=== PATIENT | female | born 1945 | race Caucasian/White ===

== ENCOUNTER → 2017-02-25 | Outpatient (CLI) | payer MEDICARE ==
--- NOTE | 2017-02-25 15:22 | CT ---
EXAMINATION TYPE: CT shoulder LT wo con DATE OF EXAM: 02/25/2017 12:19 PM COMPARISON: NONE HISTORY: Lt proximal humerus fracture, fall CT DLP: 207.1 mGycm Automated exposure control for dose reduction was used. FINDINGS: There is an oblique or spiral comminuted fracture through the proximal left humerus. Three-D reconstr ucted images performed separately on the ventricular computer are reviewed. Clavicle appears intact. Scapula appears intact. IMPRESSION: ESSENTIALLY NONDISPLACED OBLIQUE COMMINUTED FRACTURE PROXIMAL HUMERUS. THE GREATER TUBEROSITY IS AVUL SED THERE IS AN OBLIQUE FRACTURE FROM THE GREATER TUBEROSITY TO THE MEDIAL METADIAPHYSEAL HUMERUS.
== END | disposition home or self-care (01) ==
LOC: RADCTMAIN 11:43
PROVIDERS: ATTEND Orthopaedic Surgery
DX: S42.255A Nondisplaced fracture of greater tuberosity of left humerus, initial encounter for closed fracture (principal)

== ENCOUNTER 2021-10-30 16:25 | Emergency (ER) | payer MEDICARE ==
[2021-10-30 17:01] VITALS: TEMP 98.6
--- NOTE | 2021-10-30 17:09 | ED ---
General Adult HPI - General Chief complaint: Weakness Stated complaint: Fall 2 wks ago, Headache, no thinners Time Seen by Provider: 10/30/21 17:08 Source: patient, family Mode of arrival: wheelchair Limitations: no limitations - History of Present Illness Initial comments: Patient presents to the ED with her daughter for evaluation. Per daughter, the patient has rapidly progressing macular degeneration, and her eyesight has become significantly worse over the past several weeks (daughter states that the patient just saw her health researcher yesterday). Per daughter, given the patient's worsening eyesight, she has been bumping into things and falling more frequently. Per daughter, the patient fell off the couch last week, striking her head on the ground. Daughter states that the patient fell again a couple days later and hit her head at that time as well. Daughter states that she has not noticed any swelling or ecchymosis to the patient's head, and she denies LOC during any of these falls/injuries. Patient states that she has developed a headache today, and she feels generally weak today. Patient states that she has not had a headache until today. Patient denies fever or chills, LOC, neck pain or stiffness, focal numbness/weakness/neuro deficit, speech difficulty, eye pain, back pain, extremity pain, chest pain, dyspnea, cough or cold symptoms, palpitations, dizziness, syncope, nausea/vomiting/diarrhea, bloody or melanotic stool, dysuria or urinary symptoms, or any other symptoms or complaints. Daughter states that the patient is fully vaccinated against Covid, and she states that she has received 2 shots plus the booster shot. - Related Data Allergies Allergy/AdvReac Type Severity Reaction Status Date / Time No Known Allergies Allergy Verified 10/30/21 17:01 Review of Systems ROS Statement: Those systems with pertinent positive or pertinent negative responses have been documented in the HPI. ROS Other: All systems not noted in ROS Statement are negative. Past Medical History Past Medical History: Osteoarthritis (OA) Additional Past Medical History / Comment(s): macular degeneration History of Any Multi-Drug Resistant Organisms: None Reported Past Surgical History: Orthopedic Surgery, Tonsillectomy Past Psychological History: No Psychological Hx Reported Smoking Status: Never smoker Past Alcohol Use History: None Reported Past Drug Use History: None Reported General Exam Limitations: no limitations General appearance: alert, in no apparent distress Head exam: Present: atraumatic, normocephalic Eye exam: Present: normal appearance, PERRL, EOMI ENT exam: Present: mucous membranes moist, TM's normal bilaterally Neck exam: Present: other (Trachea is in midline). Absent: tenderness Respiratory exam: Present: normal lung sounds bilaterally. Absent: respiratory distress, wheezes, rales, rhonchi, stridor Cardiovascular Exam: Present: regular rate, normal rhythm, normal heart sounds, other (Normal radial pulses bilaterally) GI/Abdominal exam: Present: soft. Absent: distended, tenderness, guarding Extremities exam: Present: full ROM. Absent: tenderness, pedal edema, calf tenderness Back exam: Present: normal inspection. Absent: tenderness Neurological exam: Present: alert, oriented X3, CN II-XII intact. Absent: motor sensory deficit Psychiatric exam: Present: normal affect, normal mood Skin exam: Present: warm, dry, intact, normal color Course Vital Signs 10/30/21 10/30/21 16:53 19:18 Temperature 98.6 F Pulse Rate 109 H 102 H Respiratory 19 18 Rate Blood Pressure 173/78 162/81 O2 Sat by Pulse 99 99 Oximetry - Reevaluation(s) Reevaluation #1: 10/30/21 18:50 Case, H&P, test results thus far and head CT report were discussed with Dr. Chang (ED physician at [facility] in [place]). She accepts ambulance transfer to their ED for neurosurgical evaluation. She has no further recommendations at this time. 10/30/21 19:05 Patient and daughter are aware of the patient's test results thus far/CT findings and my discussion with Dr. Chang as above. They both agree with trans sky to the [facility] ED at this time. Patient denies development of any new symptoms while in the ED, and she remains alert and breathing comfortably with a nonfocal neurological exam. EKG Findings - EKG Comments: EKG Findings:: Normal sinus rhythm, ventricular rate of 88 bpm, no ectopy, normal TX and QRS intervals, normal QT interval, normal axis, no ST or T-wave abnormality Medical Decision Making - Medical Decision Making Given the patient's reported symptoms and brain CT findings, I am concerned for the possibility of a brain mass/tumor. MR imaging is not available in our hospital at this time. Patient has been accepted for transfer to the [facility] ED for MR imaging and neurosurgical consultation. Patient and daughter agree with transfer to the [facility] ED at this time. Patient was given a dose of IV Decadron in the ED. - Lab Data Result diagrams: 10/30/21 18:09 10/30/21 18:09 Lab Results 10/30/21 10/30/21 10/30/21 Range/Units 18:09 18:09 18:09 WBC 7.4 (3.8-10.6) k/uL RBC 4.09 (3.80-5.40) m/uL Hgb 12.3 (11.4-16.0) gm/dL Hct 37.4 (34.0-46.0) % MCV 91.4 (80.0-100.0) fL MCH 30.2 (25.0-35.0) pg MCHC 33.0 (31.0-37.0) g/dL RDW 12.2 (11.5-15.5) % Plt Count 190 (150-450) k/uL MPV 10.1 Neutrophils % 69 % Lymphocytes % 18 % Monocytes % 7 % Eosinophils % 3 % Basophils % 1 % Neutrophils # 5.1 (1.3-7.7) k/uL Lymphocytes # 1.3 (1.0-4.8) k/uL Monocytes # 0.5 (0-1.0) k/uL Eosinophils # 0.2 (0-0.7) k/uL Basophils # 0.1 (0-0.2) k/uL PT 10.6 (9.0-12.0) sec INR 1.0 (<1.2) APTT 23.1 (22.0-30.0) sec Sodium (137-145) mmol/L Potassium (3.5-5.1) mmol/L Chloride (98-107) mmol/L Carbon Dioxide (22-30) mmol/L Anion Gap mmol/L BUN (7-17) mg/dL Creatinine (0.52-1.04) mg/dL Est GFR (CKD-EPI)AfAm (>60 ml/min/1.73 sqM) Est GFR (CKD-EPI)NonAf (>60 ml/min/1.73 sqM) Glucose (74-99) mg/dL Plasma Lactic Acid Kirill (0.7-2.0) mmol/L Calcium (8.4-10.2) mg/dL Magnesium (1.6-2.3) mg/dL Total Bilirubin (0.2-1.3) mg/dL AST (14-36) U/L ALT (4-34) U/L Alkaline Phosphatase (38-126) U/L Troponin I (0.000-0.034) ng/mL Total Protein (6.3-8.2) g/dL Albumin (3.5-5.0) g/dL TSH (0.465-4.680) mIU/L Urine Color Light Yellow Urine Appearance Cloudy H (Clear) Urine pH 5.0 (5.0-8.0) Ur Specific [place] 1.012 (1.001-1.035) Urine Protein Negative (Negative) Urine Glucose (UA) Negative (Negative) Urine Ketones Negative (Negative) Urine Blood Small H (Negative) Urine Nitrite Negative (Negative) Urine Bilirubin Negative (Negative) Urine Urobilinogen <2.0 (<2.0) mg/dL Ur Leukocyte Esterase Negative (Negative) Urine RBC 4 (0-5) /hpf Urine WBC 3 (0-5) /hpf Ur Squamous Epith Cells <1 (0-4) /hpf Hyaline Casts 1 (0-2) /lpf Urine Mucus Rare H (None) /hpf Coronavirus (PCR) (Not Detectd) 10/30/21 10/30/21 10/30/21 Range/Units 18:09 18:09 18:09 WBC (3.8-10.6) k/uL RBC (3.80-5.40) m/uL Hgb (11.4-16.0) gm/dL Hct (34.0-46.0) % MCV (80.0-100.0) fL MCH (25.0-35.0) pg MCHC (31.0-37.0) g/dL RDW (11.5-15.5) % Plt Count (150-450) k/uL MPV Neutrophils % % Lymphocytes % % Monocytes % % Eosinophils % % Basophils % % Neutrophils # (1.3-7.7) k/uL Lymphocytes # (1.0-4.8) k/uL Monocytes # (0-1.0) k/uL Eosinophils # (0-0.7) k/uL Basophils # (0-0.2) k/uL PT (9.0-12.0) sec INR (<1.2) APTT (22.0-30.0) sec Sodium 139 (137-145) mmol/L Potassium 4.2 (3.5-5.1) mmol/L Chloride 103 (98-107) mmol/L Carbon Dioxide 28 (22-30) mmol/L Anion Gap 8 mmol/L BUN 22 H (7-17) mg/dL Creatinine 0.82 (0.52-1.04) mg/dL Est GFR (CKD-EPI)AfAm 79 (>60 ml/min/1.73 sqM) Est GFR (CKD-EPI)NonAf 69 (>60 ml/min/1.73 sqM) Glucose 100 H (74-99) mg/dL Plasma Lactic Acid Kirill 1.1 (0.7-2.0) mmol/L Calcium 10.3 H (8.4-10.2) mg/dL Magnesium 2.1 (1.6-2.3) mg/dL Total Bilirubin 0.4 (0.2-1.3) mg/dL AST 29 (14-36) U/L ALT 16 (4-34) U/L Alkaline Phosphatase 78 (38-126) U/L Troponin I <0.012 (0.000-0.034) ng/mL Total Protein 7.4 (6.3-8.2) g/dL Albumin 4.4 (3.5-5.0) g/dL TSH 2.910 (0.465-4.680) mIU/L Urine Color Urine Appearance (Clear) Urine pH (5.0-8.0) Ur Specific [place] (1.001-1.035) Urine Protein (Negative) Urine Glucose (UA) (Negative) Urine Ketones (Negative) Urine Blood (Negative) Urine Nitrite (Negative) Urine Bilirubin (Negative) Urine Urobilinogen (<2.0) mg/dL Ur Leukocyte Esterase (Negative) Urine RBC (0-5) /hpf Urine WBC (0-5) /hpf Ur Squamous Epith Cells (0-4) /hpf Hyaline Casts (0-2) /lpf Urine Mucus (None) /hpf Coronavirus (PCR) (Not Detectd) 12/24/21 Range/Units 18:09 WBC (3.8-10.6) k/uL RBC (3.80-5.40) m/uL Hgb (11.4-16.0) gm/dL Hct (34.0-46.0) % MCV (80.0-100.0) fL MCH (25.0-35.0) pg MCHC (31.0-37.0) g/dL RDW (11.5-15.5) % Plt Count (150-450) k/uL MPV Neutrophils % % Lymphocytes % % Monocytes % % Eosinophils % % Basophils % % Neutrophils # (1.3-7.7) k/uL Lymphocytes # (1.0-4.8) k/uL Monocytes # (0-1.0) k/uL Eosinophils # (0-0.7) k/uL Basophils # (0-0.2) k/uL PT (9.0-12.0) sec INR (<1.2) APTT (22.0-30.0) sec Sodium (137-145) mmol/L Potassium (3.5-5.1) mmol/L Chloride (98-107) mmol/L Carbon Dioxide (22-30) mmol/L Anion Gap mmol/L BUN (7-17) mg/dL Creatinine (0.52-1.04) mg/dL Est GFR (CKD-EPI)AfAm (>60 ml/min/1.73 sqM) Est GFR (CKD-EPI)NonAf (>60 ml/min/1.73 sqM) Glucose (74-99) mg/dL Plasma Lactic Acid Kirill (0.7-2.0) mmol/L Calcium (8.4-10.2) mg/dL Magnesium (1.6-2.3) mg/dL Total Bilirubin (0.2-1.3) mg/dL AST (14-36) U/L ALT (4-34) U/L Alkaline Phosphatase (38-126) U/L Troponin I (0.000-0.034) ng/mL Total Protein (6.3-8.2) g/dL Albumin (3.5-5.0) g/dL TSH (0.465-4.680) mIU/L Urine Color Urine Appearance (Clear) Urine pH (5.0-8.0) Ur Specific [place] (1.001-1.035) Urine Protein (Negative) Urine Glucose (UA) (Negative) Urine Ketones (Negative) Urine Blood (Negative) Urine Nitrite (Negative) Urine Bilirubin (Negative) Urine Urobilinogen (<2.0) mg/dL Ur Leukocyte Esterase (Negative) Urine RBC (0-5) /hpf Urine WBC (0-5) /hpf Ur Squamous Epith Cells (0-4) /hpf Hyaline Casts (0-2) /lpf Urine Mucus (None) /hpf Coronavirus (PCR) Not Detected (Not Detectd) - Radiology Data Radiology results: report reviewed (Chest x-ray: No active cardiopulmonary disease) Noncontrast head CT: Cerebral edema and mild mass effect that could relate to presence of a tumor. Follow up recommended. Contrast CT or MR scan recommended for further evaluation if clinically indicated. Disposition Clinical Impression: Headache, Generalized weakness, Abnormal brain CT, Cerebral edema Disposition: OTHER INSTITUTION NOT DEFINED Condition: Stable Is patient prescribed a controlled substance at d/c from ED?: No Referrals: Hugo Watkins MD [Primary Care Provider] - 1-2 days Time of Disposition: 19:08 - Out of Hospital Transfer - Req. Specs Out of Hospital Transfer - Requested Specifics: Other Emergency Center ([facility])
--- NOTE | 2021-10-30 18:17 | XR ---
EXAMINATION TYPE: XR chest 2V DATE OF EXAM: 10/30/2021 COMPARISON: NONE HISTORY: Fall. Weakness. TECHNIQUE: FINDINGS: There is no heart failure nor confluent pneumonic infiltrate. Costophrenic angles are clear . There is osteopenia. There are no hilar masses. Heart size is normal. There are chest leads. IMPRESSION: No active cardiopulmonary disease.
--- NOTE | 2021-10-30 18:20 | CT ---
EXAMINATION TYPE: CT brain wo con DATE OF EXAM: 10/30/2021 COMPARISON: None HISTORY: weakness, falls, visual changes CT DLP: 1118.4 mGycm Automated exposure control for dose reduction was used. There is large area of white matter hypodensity involving the right parietal lobe and posterior tempo ral and occipital lobes consistent with edema. There is some effacement of the temporal horn right la teral ventricle. There is very slight midline shift to the left side. There is no evidence of intracr anial hemorrhage. Calvarium is intact. There is also some mild cerebral edema in the adjacent left pa rietal lobe near the cerebral falx. Calvarium is intact. Skull base is intact. IMPRESSION: Cerebral edema and mild mass effect that could relate to presence of a tumor. Follow-up recommended. Contrast CT or MR scan recommended for further evaluation if clinically indicated.
[2021-10-30 18:31] LABS: Appearance,Urine Cloudy (Clear); Bilirubin,Urine Negative (Negative); Blood,Urine Small (Negative); Color,Urine Light Yellow; Glucose,Urine (UA) Negative (Negative); Hyaline Casts,Urine 1 /lpf (0-2); Ketones,Urine Negative (Negative); Leukocyte Esterase,Urine Negative (Negative); Mucus,Urine Rare /hpf; Nitrite,Urine Negative (Negative); Protein,Urine Negative (Negative); RBC,Urine 4 /hpf (0-5); Specific Gravity,Urine 1.012 (1.001-1.035); Squamous Epithelial Cell,Urine <1 /hpf (0-4); Urobilinogen,Urine <2.0 mg/dL (<2.0); WBC,Urine 3 /hpf (0-5)
[2021-10-30] MEDS ORDERED: MORPHINE SULFATE 2 MG/ML SYRINGE IVP STA (18:32)
[2021-10-30] MEDS ORDERED: DEXAMETHASONE SOD PHOSPHATE 10 MG/ML 1 ML VIAL IVP STA (18:33)
[2021-10-30 18:37] LABS: Basophils # (A) 0.1 k/uL (0-0.2); Basophils % (A) 1 %; Eosinophils # (A) 0.2 k/uL (0-0.7); Eosinophils % (A) 3 %; HCT 37.4 % (34.0-46.0); HGB 12.3 gm/dL (11.4-16.0); Lymphocytes # (A) 1.3 k/uL (1.0-4.8); Lymphocytes % (A) 18 %; MCH 30.2 pg (25.0-35.0); MCV 91.4 fL (80.0-100.0); Mean Platelet Volume 10.1; Monocytes # (A) 0.5 k/uL (0-1.0); Monocytes % (A) 7 %; Neutrophils # (A) 5.1 k/uL (1.3-7.7); Neutrophils % (A) 69 %; Platelet Count 190 k/uL (150-450); RBC 4.09 m/uL (3.80-5.40); RDW 12.2 % (11.5-15.5); WBC 7.4 k/uL (3.8-10.6)
[2021-10-30 18:49] LABS: Albumin 4.4 g/dL (3.5-5.0); Calcium 10.3 mg/dL (8.4-10.2); Magnesium 2.1 mg/dL (1.6-2.3); Potassium 4.2 mmol/L (3.5-5.1); Total Bilirubin 0.4 mg/dL (0.2-1.3); Total Protein 7.4 g/dL (6.3-8.2)
[2021-10-30 18:50] LABS: Partial Thromboplastin Time 23.1 sec (22.0-30.0); Prothrombin Time 10.6 sec (9.0-12.0)
[2021-10-30 19:19] VITALS: BP 162/81; PULSE 102; RESP 18
== END 2021-10-30 19:39 | disposition other institution (70) ==
LOC: EC 16:25
DX: G93.6 Cerebral edema (principal); R53.1 Weakness; R94.02 Abnormal brain scan; Z20.822 Contact with and (suspected) exposure to COVID-19; W08.XXXA Fall from other furniture, initial encounter
CPT/HCPCS: 36415; 93005; 80053; 83605; 83735; 84443; 84484; 85025; 85610; 85730; 81001; 87635; 71046; 70450; 99285; 96374; 96375; J1100; J2270